=== PATIENT | female | born 1990 | race Caucasian/White ===

== ENCOUNTER 2019-06-06 16:42 | Emergency (ER) | payer SELFPAY ==
[2019-06-06 16:49] VITALS: BP 144/107; PULSE 98; RESP 16; TEMP 36.6; O2SAT 99
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
[2019-06-06] MEDS: Ibuprofen 600 MG TAB PO (18:23)
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
[2019-06-06 20:24] VITALS: BP 144/107; PULSE 98; RESP 16; O2SAT 99
--- NOTE | 2019-06-06 20:33 | NUR.NOTE ---
Nursing Note: Placed bacitracin, and bandage on abrasions over R knee. wrapped in an kristian bandage.
== END 2019-06-06 20:54 | disposition home or self-care (01) ==
PROVIDERS: Emergency Provider Physician Assistant; PCP Nurse Practitioner
DX: S80.212A Abrasion, left knee, initial encounter (principal); S80.12XA Contusion of left lower leg, initial encounter; M25.462 Effusion, left knee; V29.9XXA Motorcycle rider (driver) (passenger) injured in unspecified traffic accident, initial encounter
CPT/HCPCS: 99284; 73564; 73590; 73610; 73630

== ENCOUNTER 2020-07-29 08:29 | Outpatient (REF) | payer BC, SELFPAY ==
[2020-07-29 19:06] LABS: ALT 30 U/L (14-59); AST 19 U/L (15-37); Albumin 3.6 g/dL (3.4-5.0); Alkaline Phosphatase 108 U/L (46-116); Anion Gap 8.7 mmol/L (3-11); BUN 7 mg/dL (7-18); Bilirubin, Total 0.4 mg/dL (0.2-1.0); CO2 27.3 mmol/L (21.0-32.0); CREATININE 0.79 mg/dL (0.55-1.02); Calcium 8.5 mg/dL (8.5-10.1); Chloride 106 mmol/L (98-107); Glucose 92 mg/dL (74-106); Potassium 4.1 mmol/L (3.5-5.1); Sodium 142 mmol/L (136-145); TSH (W/Ref FT4) 1.73 uIU/mL (0.36-3.74); Total Protein 6.8 g/dL (6.4-8.2)
[2020-07-29 19:20] LABS: Hemoglobin A1C 5.3 % (<5.7)
== END 2020-07-29 08:49 ==
LOC: NCHCN 08:29
PROVIDERS: PCP Nurse Practitioner; Visit Provider Nurse Practitioner
DX: Z00.00 Encounter for general adult medical examination without abnormal findings (principal); Z13.29 Encounter for screening for other suspected endocrine disorder; R73.9 Hyperglycemia, unspecified; Z13.228 Encounter for screening for other metabolic disorders
CPT/HCPCS: 80053; 83036; 84443

== ENCOUNTER 2021-01-26 10:23 | Outpatient (REF) | payer BC, SELFPAY ==
--- NOTE | 2021-01-26 08:30 | PAPFT_PTH ---
PATIENT: Chata Ozuna LOC: DI U#:[id number] AGE/SX: 30/F ROOM: RE01/26/[address]: Chantal Tanner NP : 1990 BED: DIS: 01/26/2021 SPEC #: [id number] RECD: 01/26/21 12:58 STATUS: SHELBY REQ #: [id number] ANT: 01/26/21 08:[address]: Ciro BUI,Chantal DEPT: [facility] Cytology RECD BY: Florencia Junior ENTERED: 01/26/21 12:58 SP TYPE: PAPFT OTHR DR: Dina Melendrez Tissues: 1 - CX/ENDOCX FOR PAP SMEARS Procedures: PAP THIN PREP/UVM Screening HPV DNA PROBE Comments: [id number]
== END 2021-01-26 10:24 | disposition home or self-care (01) ==
LOC: LBN 10:23
PROVIDERS: PCP Nurse Practitioner; Visit Provider Nurse Practitioner Women's Health
DX: Z12.4 Encounter for screening for malignant neoplasm of cervix (principal); Z11.51 Encounter for screening for human papillomavirus (HPV)
CPT/HCPCS: 88142; 87624

== ENCOUNTER 2021-02-15 01:27 | Outpatient (CLI) | payer BC, SELFPAY ==
--- NOTE | 2021-02-15 14:27 | DI.MAMMO_ITS ---
EXAM: MG MAMMO DIAGNOSTIC BI and bilateral limited breast ultrasound. CLINICAL HISTORY: L sided dark brown nipple discharge,N64.52. TECHNIQUE: Craniocaudal and mediolateral oblique Full Field Digital Mammography views with Computer Aided Diagnosis followed by Tomosynthesis and bilateral breast ultrasound. COMPARISON: No previous for comparison. FINDINGS: Mammography/Tomosynthesis: Masses/Architectural Distortion: None seen. Microcalcifictions: No suspicious pleomorphic-type are seen. Skin Thickening/Nipple Retraction: None. Bilateral breast US: The retroareolar regions of both breasts was evaluated sonographically. Echotexture: Normal appearance of the glandular tissue. Shadowing: No suspicious foci. Cyst: None. Solid lesions: None seen. Ductal dilation: None. IMPRESSION: 1. No evidence of malignancy is noted. 2. Unless there is more urgent need, screening mammography is recommended, as per [place] [employer] guidelines. 3. The findings were discussed with the patient on the date of the examination. BI-RADS Category 1 - Negative Breast Density - Category B - Scattered areas of fibroglandular density Breast density Category C or D implies that the patient has dense breast tissue. Dense breast tissue can make it harder to find cancer on a mammogram. Dense breast tissue is also associated with an incr eased risk of breast cancer. This information about the result of the mammogram report was provided to the patient to raise their awareness. Use this report when you speak with the patient about their risks for breast cancer, which includes their family history. At that time, you may recommend additional screening tests (Ultrasoun d or MRI) as these tests may add significant information. A negative radiographic report should not delay biopsy if a dominant or clinically suspicious mass is present. Up to ten percent of cancers are not identified on mammography. A negative report may reinforce clinical impression. Adenosis and dense breasts may obscure an underlying neoplasm. False positive reports average 6 to 10%. Patient will receive a letter notifying them of these results.
== END 2021-02-15 01:47 ==
PROVIDERS: PCP Nurse Practitioner; Visit Provider Nurse Practitioner Women's Health
DX: N64.52 Nipple discharge (principal)
CPT/HCPCS: 76642; 77062; 77066; G0279

== ENCOUNTER 2021-02-15 03:45 | Outpatient (CLI) | payer BC, SELFPAY ==
[2021-02-15 21:36] LABS: Prolactin 8.5 ng/mL (See Table)
== END 2021-02-15 03:46 | disposition home or self-care (01) ==
LOC: LBO 03:46
PROVIDERS: PCP Nurse Practitioner; Visit Provider Nurse Practitioner Women's Health
DX: N64.52 Nipple discharge (principal)
CPT/HCPCS: 36415; 84146

== ENCOUNTER 2022-03-08 14:45 | Outpatient (REF) | payer BC, SELFPAY ==
[2022-03-08 14:30] LABS: HCT 41.1 % (36.0-46.0); HGB 13.1 g/dL (11.2-15.7); MCH 27.9 pg (27.0-33.0); MCHC 31.9 % (32.0-36.0); MCV 87 fL (80-95); MPV 8.8 fL (8.0-11.0); Platelet Count 411 10^3/uL (130-400); RDW 13.2 % (11.7-14.6); RDW-SD 42.2 fL; WBC 9.06 10^3/uL (4.4-10.8)
[2022-03-08 14:51] LABS: ALT 38 U/L (14-59); AST 21 U/L (15-37); Albumin 3.9 g/dL (3.4-5.0); Alkaline Phosphatase 110 U/L (46-116); Anion Gap 8.1 mmol/L (3-11); BUN 12 mg/dL (7-18); Bilirubin, Total 0.4 mg/dL (0.2-1.0); CO2 27.9 mmol/L (21.0-32.0); CREATININE 0.8 mg/dL (0.55-1.02); Calcium 8.8 mg/dL (8.5-10.1); Calculated LDL 134 mg/dL (<100); Chloride 106 mmol/L (98-107); Cholesterol 193 mg/dL (<200); Glucose 100 mg/dL (74-106); HDL Cholesterol 47 mg/dL (40-60); Potassium 4.3 mmol/L (3.5-5.1); Sodium 142 mmol/L (136-145); TSH (W/Ref FT4) 1.34 uIU/mL (0.36-3.74); Total Protein 7.4 g/dL (6.4-8.2); Triglyceride 62 mg/dL (<150)
[2022-03-08 15:03] LABS: Hemoglobin A1C 5.6 % (<5.7)
== END 2022-03-08 14:46 | disposition home or self-care (01) ==
LOC: NCHCN 14:45
PROVIDERS: PCP Nurse Practitioner; Visit Provider Nurse Practitioner Family
DX: E66.9 Obesity, unspecified (principal); F32.9 Major depressive disorder, single episode, unspecified; Z13.29 Encounter for screening for other suspected endocrine disorder; Z83.49 Family history of other endocrine, nutritional and metabolic diseases; Z13.1 Encounter for screening for diabetes mellitus
CPT/HCPCS: 80053; 80061; 85027; 83036; 84443

== ENCOUNTER 2023-07-30 10:49 | Outpatient (CLI) | payer SELFPAY ==
[2023-07-30 10:28] LABS: HGB 12.8 g/dL (11.2-15.7); MCH 27.4 pg (27.0-33.0); MCV 86 fL (80-95); MPV 8.3 fL (8.0-11.0); Platelet Count 392 10^3/uL (130-400); RBC 4.67 10^6/uL (3.93-5.22); RDW 13.3 % (11.7-14.6); RDW-SD 42.1 fL; WBC 7.56 10^3/uL (4.4-10.8)
[2023-07-30 11:11] LABS: Hemoglobin A1C 5.4 % (<5.7)
[2023-07-30 11:18] LABS: ALT 37 U/L (14-59); AST 25 U/L (15-37); Albumin 3.5 g/dL (3.4-5.0); Alkaline Phosphatase 105 U/L (46-116); Anion Gap 7.5 mmol/L (3-11); BUN 9 mg/dL (7-18); Bilirubin, Total 0.3 mg/dL (0.2-1.0); CO2 26.5 mmol/L (21.0-32.0); CREATININE 0.9 mg/dL (0.55-1.02); Calcium 9.3 mg/dL (8.5-10.1); Chloride 106 mmol/L (98-107); Estimated GFR 86.57 (mL/min/1.73m2); Glucose 100 mg/dL (74-106); Sodium 140 mmol/L (136-145); TSH (W/Ref FT4) 1.13 uIU/mL (0.36-3.74); Total Protein 7.5 g/dL (6.4-8.2)
== END 2023-07-30 10:50 | disposition home or self-care (01) ==
LOC: LBO 07-31 10:50
PROVIDERS: PCP Nurse Practitioner; Visit Provider Nurse Practitioner Family
DX: Z00.00 Encounter for general adult medical examination without abnormal findings (principal); E78.5 Hyperlipidemia, unspecified; F32.89 Other specified depressive episodes; E66.8 Other obesity; J45.20 Mild intermittent asthma, uncomplicated; Z83.49 Family history of other endocrine, nutritional and metabolic diseases; Z13.1 Encounter for screening for diabetes mellitus
CPT/HCPCS: 36415; 80053; 85027; 83036; 84443

== ENCOUNTER 2023-08-09 15:36 | Outpatient (REF) | payer OTHER, SELFPAY ==
[2023-08-09 15:17] LABS: Bacteria Rare HPF (Negative); C & S Indicated? C&S Done As Ordered; Casts Negative LPF (Negative); Crystals Negative HPF (Negative); Epithelial Cells Rare HPF (Negative); Mucus Negative (Negative); WBC 20-50 HPF (0-5)
== END 2023-08-09 15:37 | disposition home or self-care (01) ==
LOC: LBN 15:36
PROVIDERS: PCP Nurse Practitioner; Visit Provider Physician Assistant Medical
DX: R35.0 Frequency of micturition (principal)
CPT/HCPCS: 81015; 87086

== ENCOUNTER 2023-08-31 18:25 | Outpatient (REF) | payer OTHER, SELFPAY | END 2023-08-31 18:26 | disposition home or self-care (01) | LOC: LBN 18:25 | PROVIDERS: PCP Nurse Practitioner; Visit Provider Physician Assistant Medical | DX: J02.9 Acute pharyngitis, unspecified (principal) | CPT/HCPCS: 87070 ==

== ENCOUNTER 2023-09-12 19:41 | Outpatient (REF) | payer OTHER, SELFPAY | END 2023-09-12 19:42 | disposition home or self-care (01) | LOC: LBN 19:41 | PROVIDERS: PCP Nurse Practitioner; Visit Provider Physician Assistant Medical | DX: J02.9 Acute pharyngitis, unspecified (principal) | CPT/HCPCS: 87070 ==

== ENCOUNTER 2024-05-20 10:03 | Outpatient (REF) | payer SELFPAY ==
[2024-05-20 12:17] LABS: Bilirubin Negative (Negative); Blood Moderate (Negative); Clarity Cloudy (Clear); Glucose Negative (Negative); Ketones Negative (Negative); Leukocyte Esterase Small (Negative); Nitrite Negative (Negative); Urobilinogen 0.2 mg/dL (Up to 0.2)
[2024-05-20 12:28] LABS: WBC >50 HPF (0-5)
[2024-05-20 12:29] LABS: Bacteria Few HPF (Negative); C & S Indicated? No/Sq. Contamination; Crystals Negative HPF (Negative); Epithelial Cells Moderate HPF (Negative); Mucus Negative (Negative)
== END 2024-05-20 10:04 | disposition home or self-care (01) ==
LOC: LBN 10:03
PROVIDERS: Visit Provider Nurse Practitioner Family
DX: R39.9 Unspecified symptoms and signs involving the genitourinary system (principal)
CPT/HCPCS: 81003; 81015

== ENCOUNTER 2025-07-15 17:12 | Outpatient (REF) | payer SELFPAY ==
[2025-07-15 21:34] LABS: RBC 0-2 HPF (0-2); WBC 0-2 HPF (0-5)
== END 2025-07-15 17:13 | disposition home or self-care (01) ==
LOC: NCHCN 17:12
PROVIDERS: Visit Provider Physician Assistant Medical
DX: R10.2 Pelvic and perineal pain (principal)
CPT/HCPCS: 81015; 87086; 87480; 87510; 87660

== ENCOUNTER 2025-07-18 13:11 | Outpatient (REF) | payer BC, SELFPAY ==
[2025-07-18 18:46] LABS: RBC 0-2 HPF (0-2); WBC Negative HPF (0-5)
== END 2025-07-18 13:12 | disposition home or self-care (01) ==
LOC: LBN 13:11
PROVIDERS: Visit Provider Physician Assistant Medical
DX: R30.0 Dysuria (principal)
CPT/HCPCS: 81015; 87086

== ENCOUNTER 2025-07-27 14:16 | Outpatient (REF) | payer BC, SELFPAY ==
[2025-07-27 15:41] LABS: Abs Immature Grans 0.03 10^3/uL (0.0-0.06); HCT 40.3 % (36.0-46.0); HGB 12.4 g/dL (11.2-15.7); Immature Grans % 0.3 %; MCH 26.9 pg (27.0-33.0); MCHC 30.8 % (32.0-36.0); MCV 87 fL (80-95); MPV 9.2 fL (8.0-11.0); Platelet Count 389 10^3/uL (130-400); RBC 4.61 10^6/uL (3.93-5.22); RDW 14.4 % (11.7-14.6); RDW-SD 46.2 fL; WBC 8.63 10^3/uL (4.4-10.8)
[2025-07-27 16:06] LABS: ALT 36 U/L (14-59); AST 23 U/L (15-37); Albumin 3.8 g/dL (3.4-5.0); Alkaline Phosphatase 105 U/L (46-116); Anion Gap 8.0 mmol/L (3-11); BUN 9 mg/dL (7-18); Bilirubin, Total 0.3 mg/dL (0.2-1.0); CO2 29.0 mmol/L (21.0-32.0); Calcium 8.9 mg/dL (8.5-10.1); Chloride 105 mmol/L (98-107); Estimated GFR 85.50 (mL/min/1.73m2); Glucose 119 mg/dL (74-106); Potassium 4.0 mmol/L (3.5-5.1); Sodium 142 mmol/L (136-145); TSH (W/Ref FT4) 1.60 uIU/mL (0.36-3.74); Total Protein 7.1 g/dL (6.4-8.2)
[2025-07-27 17:05] LABS: Hemoglobin A1C 5.2 % (<5.7)
[2025-07-28 15:46] LABS: Calculated LDL 126 mg/dL (<100); Cholesterol 191 mg/dL (<200); HDL Cholesterol 43 mg/dL (>or=50); Triglyceride 112 mg/dL (<150)
== END 2025-07-27 14:17 | disposition home or self-care (01) ==
LOC: NCHCN 14:16
PROVIDERS: Visit Provider Nurse Practitioner Family
DX: Z00.00 Encounter for general adult medical examination without abnormal findings (principal); R53.82 Chronic fatigue, unspecified; Z13.1 Encounter for screening for diabetes mellitus; Z13.220 Encounter for screening for lipoid disorders; Z68.43 Body mass index [BMI] 50.0-59.9, adult
CPT/HCPCS: 80053; 80061; 83036; 84443; 85025

== ENCOUNTER 2025-08-12 12:26 | Outpatient (REF) | payer BC, SELFPAY ==
--- NOTE | 2025-08-12 11:40 | PAPFT_PTH ---
PATIENT: Chata Ozuna LOC: DI U#:[id number] AGE/SX: 35/F ROOM: RE08/12/[address]: Bethany Arciniega MD : 1990 BED: DIS: 08/12/2025 SPEC #: [id number] RECD: 08/12/25 13:08 STATUS: SHELBY REJeffry #: [id number] ANT: 08/12/25 11:[address]: Bethany Arciniega DEPT: [facility] Cytology RECD BY: Florencia Junior ENTERED: 08/12/25 13:09 SP TYPE: PAPFT OT DR: None Tissues: 1 - CX/ENDOCX FOR PAP SMEARS Procedures: PAP THIN PREP/UVM Screening HPV DNA PROBE Comments: [id number] (HPV 16 & 18/45)
== END 2025-08-12 12:27 | disposition home or self-care (01) ==
LOC: LBN 12:26
PROVIDERS: Visit Provider Obstetrics & Gynecology
DX: Z12.4 Encounter for screening for malignant neoplasm of cervix (principal)
CPT/HCPCS: 88142; 87480; 87510; 87624; 87660

== ENCOUNTER 2025-08-24 03:44 | Outpatient (CLI) | payer BC, SELFPAY ==
[2025-08-30 09:33] LABS: Testosterone, Free 1.36 ng/dL (<0.13-1.00)
== END 2025-08-24 03:45 | disposition home or self-care (01) ==
LOC: LBO 03:44
PROVIDERS: Visit Provider Obstetrics & Gynecology
DX: N97.0 Female infertility associated with anovulation (principal); L68.9 Hypertrichosis, unspecified
CPT/HCPCS: 36415; 84402; 84403; 84144

== ENCOUNTER 2025-09-08 01:24 | Outpatient (CLI) | payer BC, SELFPAY ==
[2025-09-08 18:51] LABS: FSH 9.4 mIU/mL (See Note)
== END 2025-09-08 01:25 | disposition home or self-care (01) ==
PROVIDERS: Visit Provider Obstetrics & Gynecology
DX: N97.0 Female infertility associated with anovulation (principal); E66.9 Obesity, unspecified; Z12.4 Encounter for screening for malignant neoplasm of cervix
CPT/HCPCS: 36415; 82670; 83001; 83520